=== PATIENT | female | born 1990 | race African-American/Black ===

== ENCOUNTER 2016-07-28 17:34 | Emergency (ER) | payer MEDICAID ==
[~2016-07-28] VITALS: Ht 162.6 cm; Wt 70.0 kg
[2016-07-28] MEDS ORDERED: SODIUM CHLORIDE 0.9% 1,000 ML IV ONE (18:04)
[2016-07-28] MEDS ORDERED: ONDANSETRON HCL 4MG/2ML VIAL IV STA (18:04)
[2016-07-28] MEDS ORDERED: MORPHINE SULFATE 4 MG/ML CPJ (NOT FOR IM USE) IV STA (18:04)
[2016-07-28] MEDS ORDERED: KETOROLAC 30MG/ML VIAL IV ONE (18:15)
[2016-07-28 18:53] LABS: BASOPHILS % 0.4 % (0.0-2.0); EOSINOPHILS % 1.7 % (0.0-5.0); HEMATOCRIT. 30.6 % (36.0-48.0); HEMOGLOBIN. 10.2 g/dL (12.0-16.0); LYMPHOCYTES % 12.8 % (20.0-50.0); MEAN CORPUSCULAR HEMOGLOBIN 27.4 pg (28.0-32.0); MEAN CORPUSCULAR HGB CONC 33.3 g/dL (31.0-37.0); MEAN CORPUSCULAR VOLUME 82.4 fL (81.0-99.0); MEAN PLATELET VOLUME 10.6 fl (7.4-10.4); MONOCYTES % 7.9 % (2.0-8.0); NEUTROPHILS % 77.2 % (40.0-76.0); PLATELET 138 x1000/uL (130-400); RED BLOOD CELL COUNT 3.71 mill/uL (4.2-5.4); RED CELL DISTRIBUTION WIDTH 15.2 % (11.6-14.6); WHITE BLOOD COUNT 13.4 x1000/uL (4.5-11.0)
[2016-07-28 18:57] LABS: ANION GAP 11; CALCIUM 8.3 mg/dL (8.5-10.1); CARBON DIOXIDE 26 mEq/L (21-32); CHLORIDE 106 mEq/L (98-107); INDEX HEMOLYSI 1 (1-3); INDEX ICTERIC 1 (1-4); INDEX LIPEMIC 1 (1-3); LIPASE 181 IU/L (73-393); UREA NITROGEN BLOOD 10 mg/dL (7-21)
[2016-07-28 19:00] LABS: ALANINE AMINOTRANSFERASE 11 IU/L (13-61); eGFR > 60 mL/min (>60)
[2016-07-28 19:05] LABS: CLARITY URINE CLOUDY (CLEAR); COLOR URINE YELLOW (YELLOW); GLUCOSE URINE TRACE (NEGATIVE); KETONES URINE NEGATIVE (NEGATIVE); LEUKOCYTE ESTERASE URINE 1+ (NEGATIVE); NITRITE URINE NEGATIVE (NEGATIVE); OCCULT BLOOD URINE 3+ (NEGATIVE); PROTEIN URINE 4+ (NEGATIVE)
[2016-07-28 19:17] LABS: BACTERIA URINE TRACE; RBC URINE TNTC /hpf (0-2); SQUAMOUS EPITHELIAL CELL URINE 1+ /lpf (RARE/1+)
[2016-07-28 19:18] LABS: B-HCG QUANTITATIVE 63249 mIU/mL (<3)
[2016-07-28 21:46] VITALS: BP 124/81
== END 2016-07-28 21:49 | disposition home or self-care (01) ==
LOC: ER 17:34
DX: O03.9 Complete or unspecified spontaneous abortion without complication (principal); O26.891 Other specified pregnancy related conditions, first trimester; R10.9 Unspecified abdominal pain; O23.41 Unspecified infection of urinary tract in pregnancy, first trimester; N39.0 Urinary tract infection, site not specified; Z3A.08 8 weeks gestation of pregnancy
CPT/HCPCS: 36415; 76801; 76817; 80053; 81001; 83690; 84702; 85025; 85610; 86850; 86900; 86901; 96361; 96374; 96375; 99285; J1885; J2270; J2405; J7030

== ENCOUNTER 2017-04-26 06:19 | Emergency (ER) | payer MEDICAID ==
[~2017-04-26] VITALS: Ht 170.2 cm; Wt 71.0 kg
[2017-04-26 09:05] VITALS: BP 112/67
== END 2017-04-26 11:00 | disposition home or self-care (01) ==
LOC: ER 06:19
DX: R07.9 Chest pain, unspecified (principal); R05 Cough
CPT/HCPCS: 71045; 81025; 93005; 99284

== ENCOUNTER 2017-07-24 12:10 | Emergency (ER) | payer MEDICAID ==
[~2017-07-24] VITALS: Ht 162.6 cm; Wt 72.0 kg
[2017-07-24 14:10] LABS: CLARITY URINE CLEAR (CLEAR); COLOR URINE YELLOW (YELLOW); KETONES URINE NEGATIVE (NEGATIVE); LEUKOCYTE ESTERASE URINE NEGATIVE (NEGATIVE); NITRITE URINE NEGATIVE (NEGATIVE); OCCULT BLOOD URINE NEGATIVE (NEGATIVE); PH URINE 5.5 (4.5-8.0); PROTEIN URINE NEGATIVE (NEGATIVE); SPECIFIC GRAVITY URINE 1.017 (1.005-1.030); UROBILINOGEN URINE 0.2 E.U./dL (0.2-1.0)
[2017-07-24 16:10] VITALS: BP 116/72
== END 2017-07-24 17:05 | disposition home or self-care (01) ==
LOC: ER 12:57
DX: M94.0 Chondrocostal junction syndrome [Tietze] (principal); E86.0 Dehydration; Z72.0 Tobacco use
CPT/HCPCS: 71045; 81003; 87804; 93005; 99285

== ENCOUNTER 2017-10-15 11:23 | Emergency (ER) | payer MEDICAID ==
[~2017-10-15] VITALS: Ht 167.6 cm; Wt 68.0 kg
[2017-10-15] MEDS ORDERED: IBUPROFEN 600MG TABLET PO STA (12:13)
[2017-10-15 15:14] VITALS: BP 108/56
== END 2017-10-15 15:21 | disposition home or self-care (01) ==
LOC: ER 12:56
DX: R07.9 Chest pain, unspecified (principal)
CPT/HCPCS: 71045; 81025; 93005; 99284

== ENCOUNTER 2017-11-01 09:38 | Emergency (ER) | payer MEDICAID ==
[~2017-11-01] VITALS: Ht 167.6 cm; Wt 68.0 kg
[2017-11-01] MEDS ORDERED: KETOROLAC 15MG/ML VIAL IM NR (11:15)
[2017-11-01] MEDS ORDERED: IBUPROFEN 600MG TABLET PO ONE (11:30)
[2017-11-01 11:47] VITALS: BP 119/76
== END 2017-11-01 11:54 | disposition home or self-care (01) ==
LOC: ER 10:28
DX: R05 Cough (principal); R07.89 Other chest pain; R51 Headache; Z98.890 Other specified postprocedural states
CPT/HCPCS: 71045; 81025; 93005; 99284; Z7610; J1885